=== PATIENT | male | born 1965 | race Caucasian/White ===

== ENCOUNTER 2019-03-27 11:54 | Emergency (ER) | payer OTHER ==
[2019-03-27 12:33] VITALS: BP 140/70
--- NOTE | 2019-03-27 13:31 | UC ---
Shoulder Pain HPI - HPI Summary HPI Summary: Patient is a 53yo male presenting with L shoulder pain x3 days. Denies injury or trauma. States it began while driving to [place] and back over the weekend but after he woke up yesterday morning, states pain was much worse. Notes sharp pain with any movement of L arm. States "feels like something is pinched or out of place." Denies numbness and tingling. Denies decreased ROM but states movement "takes longer because of pain." Denies radiating pain. Denies pain at rest. 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 States he has follow up derm appt today but wants a second opinion. - History of Current Complaint Chief Complaint: UCUpperExtremity Stated Complaint: LEFT SHOULDER PAIN Hx Obtained From: Patient Onset/Duration: Gradual Onset, Lasting Days Severity Currently: Severe Pain Intensity: 8 Pain Scale Used: 0-10 Numeric Related History: Dominant Hand Right - Allergies/Home Medications Allergies/Adverse Reactions: Allergies Allergy/AdvReac Type Severity Reaction Status Date / Time No Known Allergies Allergy Verified 03/27/19 12:34 Home Medications: Home Medications NK [No Home Medications Reported] 03/27/19 [History Confirmed 03/27/19] PMH/Surg Hx/FS Hx/Imm Hx Previously Healthy: Yes - Surgical History Surgical History: None - Family History Known Family History: Positive: Unknown, Diabetes - Social History Occupation: Employed Full-time Lives: With Family Alcohol Use: Rare Substance Use Type: None Smoking Status (MU): Former Smoker Review of Systems All Other Systems Reviewed And Are Negative: Yes Constitutional: Positive: Negative Skin: Positive: Rash - pruritic rash on b/l arms, legs, feet Respiratory: Positive: Negative Cardiovascular: Positive: Negative Gastrointestinal: Positive: Negative Neurovascular: Positive: Negative Musculoskeletal: Positive: Arthralgia - L shoulder. Negative: Decreased ROM, Edema Neurological: Negative: Weakness, Paresthesia, Numbness Physical Exam Triage Information Reviewed: Yes Appearance: Well-Appearing, No Pain Distress, Well-Nourished Vital Signs: Initial Vital Signs Temp 98.0 F 03/27/19 12:29 Pulse 62 03/27/19 12:29 Resp 18 03/27/19 12:29 BP 140/70 03/27/19 12:29 Pulse Ox 98 03/27/19 12:29 Vital Signs Reviewed: Yes Eyes: Positive: Conjunctiva Clear ENT: Positive: Hearing grossly normal Neck exam: Normal Neck: Positive: Supple Respiratory Exam: Normal Respiratory: Positive: Lungs clear, Normal breath sounds, No respiratory distress. Negative: Crackles, Rhonchi, Stridor, Wheezing Cardiovascular Exam: Normal Cardiovascular: Positive: RRR, Pulses Normal - strong radial pulses b/l, Brisk Capillary Refill Musculoskeletal Exam: Normal Musculoskeletal: Positive: Strength Intact, No Edema, ROM Limited @ - L arm abduction due to pain, Other: - tenderness to palpation of posterior humeral head Neurological Exam: Other - sensation grossly intact Neurological: Positive: Alert Psychological: Positive: Age Appropriate Behavior Skin: Positive: Rashes - pruritic diffuse scaling rash noted over b/l forearms, lower legs, and feet. no drainage or sign of infection. Diagnostics - Radiology L shoulder Radiology Interpretation Completed By: Radiologist Summary of Radiographic Findings: IMPRESSION: Degenerative changes of the glenohumeral joint. AC joint arthritis with no fracture. Shoulder Course/Dx - Course Course Of Treatment: Discussed degenerative changes of AC joint and glenohumeral joint found on xray. Instructed to continue with symptomatic treatment and follow up with ortho if pain persists. Instructed to follow up with derm appt today for further evaluation of rash. Patient voiced understanding and agreed with treatment plan. - Differential Dx/Diagnosis Provider Diagnosis: Degenerative joint disease of shoulder, left, Rash Discharge ED - Sign-Out/Discharge Documenting (check all that apply): Patient Departure All imaging exams completed and their final reports reviewed: Yes - Discharge Plan Condition: Stable Disposition: HOME Patient Education Materials: Shoulder Pain (ED), Arthritis (ED) Referrals: [facility] [Outside] - If Needed Angela Titus MD [Primary Care Provider] - If Needed Additional Instructions: As discussed, the xrays of the shoulder did not show any fractures. Rest, ice and/or heat to help relieve pain. You may also continue to use your naproxen as directed for pain relief. If pain does not resolve, follow up with orthopedics and sports medicine as listed below. I encourage you to attend your dermatology appointment today for further evaluation of your rash. - Billing Disposition and Condition Condition: STABLE Disposition: Home
== END 2019-03-27 15:00 | disposition home or self-care (01) ==
LOC: UCEAST 11:54
DX: M19.012 Primary osteoarthritis, left shoulder (principal); R21 Rash and other nonspecific skin eruption; Z87.891 Personal history of nicotine dependence
CPT/HCPCS: 99211; G0463

== ENCOUNTER 2019-03-30 10:51 | Emergency (ER) | payer SELFPAY ==
--- NOTE | 2019-03-30 11:15 | ED ---
Complex/Multi-Sys Presentation - HPI Summary HPI Summary: This pt is a 53 y/o male presenting to [facility] c/o hemoptysis today. Pt reports he coughed up sage blood this morning for the first time and it was a significant amount he was very concerned. He notes he had spit up blood a couple of times in the past 1 month but was not a significant amount. Denies chest pain, SOB, abd pain. Pt notes 4 days ago he had chills but did not take his temperature. He states his chills lasted for 45 minutes and then resolved. Denies recent weight loss. Pt reports he has had a rash for "quite a while" for about the past couple of months. 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 He has seen a senior enlisted advisor (At [facility]) and had a biopsy done 3 days ago. Pt describes rash as pruritic. Denies throat tightening, swelling in lips or tongue. Denies any new perfumes, soaps, or clothes. Denies hx of HTN, high cholesterol, eczema as a child. Pt is a former smoker, he quit 3.5 years ago. - History Of Current Complaint Chief Complaint: EDGeneral Hx Obtained From: Patient Onset/Duration: Sudden Onset, Still Present Severity Currently: Moderate Aggravating Factor(s): nothing Alleviating Factor(s): nothing Associated Signs And Symptoms: Positive: Cough, Hemoptysis, Other - NEGATIVE: throat tightening, swelling in lips or tongue.. Negative: SOB, Chest Pain, Abdominal Pain, Fever - Allergies/Home Medications Allergies/Adverse Reactions: Allergies Allergy/AdvReac Type Severity Reaction Status Date / Time No Known Allergies Allergy Verified 03/30/19 10:59 Home Medications: Home Medications Acetaminophen TAB* [Tylenol TAB*] 325 mg PO Q4H PRN 03/30/19 [History Confirmed 03/30/19] Naproxen TAB* [Naprosyn 250 mg TAB*] 250 mg PO Q8H PRN 03/30/19 [History Confirmed 03/30/19] Triamcinolone 0.1% CREAM(NF) [Kenalog 0.1% Cream (NF)] 1 applic TOPICAL BID [History Confirmed 03/30/19] PMH/Surg Hx/FS Hx/Imm Hx Endocrine/Hematology History: Denies: Hx Diabetes Cardiovascular History: Denies: Hx Hypercholesterolemia, Hx Hypertension History: Reports: Other Problems/Disorders - Abscess on scrotum Infectious Disease History: No Infectious Disease History: Denies: Hx of Known/Suspected MRSA, Traveled Outside the [place] in Last 30 Days - Family History Known Family History: Positive: Diabetes - Social History Alcohol Use: Rare Substance Use Type: Reports: None Hx Tobacco Use: Yes Smoking Status (MU): Former Smoker Review of Systems Positive: Chills. Negative: Fever, Other - NEGATIVE: recent weight loss Negative: Other - NEGATIVE: throat tightening, swelling in lips or tongue Negative: Chest Pain Respiratory: Other - POSITIVE: hemoptysis Positive: Cough. Negative: Shortness Of Breath Negative: Abdominal Pain Positive: Rash All Other Systems Reviewed And Are Negative: Yes Physical Exam - Summary Physical Exam Summary: VITAL SIGNS: Reviewed. GENERAL: Patient is a well-developed and nourished male who is lying comfortable in the stretcher. Patient is not in any acute respiratory distress. HEAD AND FACE: No signs of trauma. No ecchymosis, hematomas or skull depressions. No sinus tenderness. EYES: PERRLA, EOMI x 2, No injected conjunctiva, no nystagmus. EARS: Hearing grossly intact. Ear canals and tympanic membranes are within normal limits. MOUTH: Oropharynx within normal limits. NECK: Supple, trachea is midline, no adenopathy, no JVD, no carotid bruit, no c- spine tenderness, neck with full ROM. CHEST: Symmetric, no tenderness at palpation LUNGS: Clear to auscultation bilaterally. No wheezing or crackles. CVS: Regular rate and rhythm, S1 and S2 present, no murmurs or gallops appreciated. ABDOMEN: Soft, non-tender. No signs of distention. No rebound no guarding, and no masses palpated. Bowel sounds are normal. EXTREMITIES: FROM in all major joints, no edema, no cyanosis or clubbing. NEURO: Alert and oriented x 3. No acute neurological deficits. Speech is normal and follows commands. SKIN: Dry and warm. Diffuse pruritic rash that is blaching, with irregular borders and looks chronic. Triage Information Reviewed: Yes Vital Signs On Initial Exam: Initial Vitals Temp Pulse Resp BP Pulse Ox 97.7 F 39 16 163/101 99 03/30/19 10:54 03/30/19 10:54 03/30/19 10:54 03/30/19 10:54 03/30/19 10:54 Vital Signs Reviewed: Yes Procedures - Sedation Patient Received Moderate/Deep Sedation with Procedure: No Diagnostics - Vital Signs Vital Signs Temp Pulse Resp BP Pulse Ox 03/30/19 10:54 97.7 F 39 16 163/101 99 - Laboratory Result Diagrams: 03/30/19 11:23 03/30/19 11:23 Lab Statement: Any lab studies that have been ordered have been reviewed, and results considered in the medical decision making process. - Radiology Chest XR Radiology Interpretation Completed By: Radiologist Summary of Radiographic Findings: IMPRESSION: Right perihilar infiltrate, recommend follow-up chest x-rays to resolution. Dr. Fischer has reviewed this report. - EKG 11:03 Cardiac Rate: Tachycardia - at 115 bpm EKG Rhythm: Sinus Tachycardia Ectopy: PVCs Summary of EKG Findings: EKG at 11:03 shows sinus tachycardia at a rate of 115 bpm. PVCs and a small episode of nonsustained Vtach. Complex Multi-Symp Course/Dx Assessment/Plan: This patient is a 53-year-old male with no significant past medical history presents to the emergency department with a chief complaint of hemoptysis. He denies any weight loss, denies any fevers or chills, denies any chest pain or shortness of breath. Blood work without any significant abnormality except for sodium 134, chloride 100, CRP of 60 and BNP 144. Urinalysis negative for UTI. Chest x-ray impression: Right perihilar infiltrate , recommend follow-up chest x-rays to resolution. In the ED course the patient was given Levaquin and IV fluids. CURB-65 is 0. Therefore the patient can be treated as an outpatient. The patient has an allergic reaction and is being treated with dermatology. He feels comfortable about his allergy reaction in the ED. I discussed all the findings and test results with the patient. Patient was instructed to return to the emergency room immediately if any of the symptoms return or worsen . Plan of care was discussed with the patient and understands and agrees. All questions were answered at patient satisfaction. There were no further complaints or concerns. Lung exam before discharge: CTA B /L. Good air exchange. No wheezing or crackles heard. CVS: S1 and S2 present. No murmurs appreciated. Patient is alert and oriented x 3. Patient is hemodynamically stable. Patient will be discharged home with follow up from his PCP in the next 2-3 days. - Diagnoses Differential Diagnoses/HQI/PQRI: Other - Pneumonia, bronchitis, malignancy, bronchiectasis, pulmonary edema Provider Diagnoses: Pneumonia, Allergic reaction Discharge ED - Sign-Out/Discharge Documenting (check all that apply): Patient Departure - Discharge home - Discharge Plan Condition: Stable Disposition: HOME Prescriptions: Levofloxacin TAB* [Levaquin TAB*] 750 mg PO DAILY #9 tab Patient Education Materials: Pneumonia (ED) Referrals: Angela Titus MD [Primary Care Provider] - Additional Instructions: FOLLOW UP WITH YOUR PRIMARY CARE PROVIDER IN 2-3 DAYS. RETURN TO THE EMERGENCY DEPARTMENT FOR ANY WORSENING OR NEW SYMPTOMS. - Billing Disposition and Condition Condition: STABLE Disposition: Home - Attestation Statements Document Initiated by Foreste: Yes Documenting Scribe: Jania Corea Provider For Whom Scribe is Documenting (Include Credential): Sam Fischer MD Scribe Attestation: Jania Mclain scribed for Sam Fischer MD on 03/30/19 at 2117. Scribe Documentation Reviewed: Yes Provider Attestation: The documentation as recorded by the Jania mckeon accurately reflects the service I personally performed and the decisions made by Sam heller MD Status of Scribe Document: Viewed
[2019-03-30] MEDS: NS 0.9% 1000 ML** 1,000 ML IV ONE (11:26)
[2019-03-30 11:34] LABS: ABS Eosinophils 0.4 10^3/ul (0-0.6); ABS Lymphocytes 1.7 10^3/ul (1.0-4.8); ABS Monocytes 0.9 10^3/ul (0-0.8); ABS Neutrophils 5.5 10^3/ul (1.5-7.7); Eosinophil % 4.3 %; Hematocrit 44 % (42-52); Hemoglobin 15.4 g/dL (14.0-18.0); Lymphocyte % 19.7 %; Mean Corpuscular HGB Conc 35 g/dL (31-36); Mean Corpuscular Hemoglobin 33 pg (27-31); Mean Corpuscular Volume 96 fL (80-94); Mean Platelet Volume 7.8 fL (7.4-10.4); Platelet Count 253 10^3/uL (150-450); Red Blood Count 4.63 10^6 /uL (4.18-5.48); Red Cell Distribution Width 13 % (10-15); White Blood Count 8.5 10^3/uL (3.5-10.8)
[2019-03-30 11:44] LABS: Activated Partial Thrombo Time 32.5 seconds (26.0-38.0); INR 0.95 (0.82-1.09)
[2019-03-30] MEDS: Magnesium Oxide TAB* 400 MG PO ONE (11:49)
[2019-03-30 11:57] LABS: Urine Appearance Clear; Urine Bilirubin Negative (Negative); Urine Blood Negative (Negative); Urine Color Yellow; Urine Glucose Negative (Negative); Urine Ketones Negative (Negative); Urine Nitrite Negative (Negative); Urine Protein Negative (Negative); Urine Specific Gravity 1.011 (1.010-1.030); Urine Urobilinogen Negative (Negative)
[2019-03-30 12:00] LABS: Albumin 3.8 g/dL (3.2-5.2); Albumin/Globulin Ratio 1.1 (1-3); BUN/Creatinine Ratio 14.6 (8-20); C Reactive Protein 60.85 mg/L (<8.01); CKMB ng/mL 2.4 ng/mL (0.6-6.3); Calcium 9.5 mg/dL (8.6-10.3); EGFR African American 107.8 (>60); EGFR Non-African American 89.1 (>60); Globulin 3.5 g/dL (2-4); Potassium 4.6 mmol/L (3.5-5.0); Total Bilirubin 0.6 mg/dL (0.2-1.0); Total Protein 7.3 g/dL (6.4-8.9)
[2019-03-30 12:01] LABS: Troponin I 0.01 ng/mL (<0.03)
[2019-03-30] MEDS: Levofloxacin 750 MG IVPREMIX(* 750 MG/150 ML BAG IVPB ONE (13:44)
[2019-03-30 15:32] VITALS: BP 137/71
== END 2019-03-30 15:28 | disposition home or self-care (01) ==
LOC: ED 10:51
DX: J18.9 Pneumonia, unspecified organism (principal); T78.40XA Allergy, unspecified, initial encounter; X58.XXXA Exposure to other specified factors, initial encounter; Y92.9 Unspecified place or not applicable; Z87.891 Personal history of nicotine dependence
CPT/HCPCS: 36415; 71046; 80053; 81003; 82550; 82553; 83605; 83880; 84484; 85025; 85610; 85730; 86140; 93005; 96361; 96365; 96366; 99283

== ENCOUNTER 2024-05-19 14:02 | Observation (INO) ==
[2024-05-19 14:44] LABS: INR 1.21 (0.85-1.14)
[2024-05-19 14:51] LABS: ABS Basophils 0.1 10^3/uL (0.0-0.1); ABS Eosinophils 0.1 10^3/uL (0.0-0.5); ABS Lymphocytes 1.9 10^3/uL (1.0-4.8); ABS Monocytes 1.5 10^3/uL (0.0-1.1); ABS Neutrophils 8.3 10^3/uL (1.5-7.6); ABS Nucleated RBC 0.02 10^3/ul; Eosinophil % 0.8 %; Hematocrit 46.7 % (38-53); Hemoglobin 15.9 g/dL (13.2-16.3); Lymphocyte % 16.1 %; Mean Corpuscular Hemoglobin 33.2 pg (27-33); Mean Corpuscular Volume 97.6 fL (80-97); Mean Platelet Volume 8.1 fL (7.5-11.2); Nucleated Red Blood Cells % 0.2 %/100WBC (0.0-0.8); Platelet Count 219 10^3/uL (150-450); Red Blood Count 4.79 10^6/uL (4.06-5.63)
[2024-05-19 15:19] LABS: Albumin 4.1 g/dL (3.5-5.7); Albumin/Globulin Ratio 1.5 (1-3); Calcium 9.4 mg/dL (8.6-10.3); Creatinine, Serum 0.97 mg/dL (0.67-1.17); Globulin 2.8 g/dL (2-4); Total Bilirubin 1.7 mg/dL (0.2-1.0); Total Protein 6.9 g/dL (6.4-8.9); eGFR CKD-EPI 89.9 (>60)
[2024-05-19] MEDS: Iohexol 350 (CONTRAST) 500 ML MDV IV ONE (15:40)
[2024-05-19 16:01] LABS: High Sensitivity Troponin 1 Hr 5 pg/mL (<20)
[2024-05-19] MEDS ORDERED: Heparin DRIP 25,000 UNITS BAG 25,000 UNITS/250 ML BAG IV ONE (16:24)
[2024-05-19] MEDS: Heparin DRIP 25,000 UNITS BAG 25,000 UNITS/250 ML BAG IV SCH (16:34)
[2024-05-19] MEDS ORDERED: Heparin 5000 UNITS/ML 1 mL VIAL IV SCH (17:00)
[2024-05-19 20:42] LABS: Creatinine, Serum 1.07 mg/dL (0.67-1.17); eGFR CKD-EPI 79.9 (>60)
[2024-05-19 23:20] LABS: Urine Appearance Clear; Urine Bacteria Absent /HPF (Absent); Urine Bilirubin Negative (Negative); Urine Blood Trace (Negative); Urine Color Yellow; Urine Glucose Trace (Negative); Urine Ketones Negative (Negative); Urine Nitrite Negative (Negative); Urine Protein Trace (Negative); Urine Red Blood Cell Trace(0-2/hpf) /HPF (0-Trace); Urine Specific Gravity >1.050 (1.002-1.030); Urine Urobilinogen 3+ (Negative); Urine White Blood Cell Trace(0-5/hpf) /HPF (0-Trace)
[2024-05-20 06:09] LABS: Hematocrit 44.4 % (38-53); Hemoglobin 15.3 g/dL (13.2-16.3); Mean Corpuscular Hemoglobin 33.5 pg (27-33); Mean Corpuscular Hgb Conc 34.4 g/dL (31-36); Mean Corpuscular Volume 97.4 fL (80-97); Mean Platelet Volume 8.1 fL (7.5-11.2); Platelet Count 205 10^3/uL (150-450); Red Blood Count 4.56 10^6/uL (4.06-5.63); Red Cell Distribution Width 12.9 % (12-17); White Blood Count 14.7 10^3/uL (3.6-10.2)
[2024-05-20 07:52] LABS: C Reactive Protein 158.97 mg/L (<8.01)
[2024-05-20 08:27] LABS: ABS Basophils 0.1 10^3/uL (0.0-0.1); ABS Eosinophils 0.1 10^3/uL (0.0-0.5); ABS Lymphocytes 1.8 10^3/uL (1.0-4.8); ABS Monocytes 1.9 10^3/uL (0.0-1.1); ABS Neutrophils 10.9 10^3/uL (1.5-7.6); ABS Nucleated RBC 0.01 10^3/ul; Eosinophil % 0.5 %; Lymphocyte % 11.9 %
[2024-05-20] MEDS: cefTRIAXone 1 gm/50 mL D5W 1 GM/50 ML BAG IV SCH (13:05)
[2024-05-20] MEDS: Azithromycin 500 mg/250 ml NS 500 MG/250 ML BAG IVPB SCH (13:05)
[2024-05-20] MEDS: Morphine 2 MG/ML SYRINGE IV PRN (17:34)
[2024-05-21 08:31] LABS: ABS Basophils 0.1 10^3/uL (0.0-0.1); ABS Eosinophils 0.1 10^3/uL (0.0-0.5); ABS Monocytes 1.5 10^3/uL (0.0-1.1); ABS Neutrophils 8.3 10^3/uL (1.5-7.6); ABS Nucleated RBC 0.02 10^3/ul; Eosinophil % 0.5 %; Hematocrit 42.5 % (38-53); Hemoglobin 14.8 g/dL (13.2-16.3); Lymphocyte % 16.8 %; Mean Corpuscular Hemoglobin 34.2 pg (27-33); Mean Corpuscular Hgb Conc 34.8 g/dL (31-36); Mean Platelet Volume 8.1 fL (7.5-11.2); Nucleated Red Blood Cells % 0.2 %/100WBC (0.0-0.8); Platelet Count 221 10^3/uL (150-450); Red Blood Count 4.33 10^6/uL (4.06-5.63); Red Cell Distribution Width 12.7 % (12-17)
[2024-05-21] MEDS: Sulfur Hexaflouride MICROSPHR 25 MG VIAL IV PRN (08:42)
[2024-05-21 09:16] LABS: Calcium 9.2 mg/dL (8.6-10.3); Creatinine, Serum 0.92 mg/dL (0.67-1.17); Magnesium 1.9 mg/dL (1.9-2.7); Potassium 4.8 mmol/L (3.5-5.0); eGFR CKD-EPI 95.8 (>60)
[2024-05-21] MEDS ORDERED: Sulfur Hexaflouride MICROSPHR 25 MG VIAL ONE (10:10)
[2024-05-22 06:13] LABS: Hematocrit 40.8 % (38-53); Hemoglobin 13.9 g/dL (13.2-16.3); Mean Corpuscular Hemoglobin 33.4 pg (27-33); Mean Corpuscular Hgb Conc 34.1 g/dL (31-36); Mean Corpuscular Volume 97.8 fL (80-97); Mean Platelet Volume 8.1 fL (7.5-11.2); Platelet Count 230 10^3/uL (150-450); Red Blood Count 4.18 10^6/uL (4.06-5.63); White Blood Count 11.5 10^3/uL (3.6-10.2)
[2024-05-22 06:34] LABS: Calcium 8.5 mg/dL (8.6-10.3); Creatinine, Serum 0.81 mg/dL (0.67-1.17); Magnesium 1.9 mg/dL (1.9-2.7); Potassium 3.8 mmol/L (3.5-5.0); eGFR CKD-EPI 101.6 (>60)
[2024-05-22] MEDS ORDERED: Naloxone 0.4 mg VIAL 0.4 mg/ml 1 ml VIAL ONE (08:17)
[2024-05-22] MEDS ORDERED: fentaNYL 100 mcg/2 ml 50 MCG/ML VIAL ONE (08:17)
[2024-05-22] MEDS ORDERED: Flumazenil 0.5 mg/5 ml 0.1 MG/ML 5 ml VIAL ONE (08:17)
[2024-05-22] MEDS ORDERED: Midazolam 5 mg/5 ml VIAL 1 mg/ml 5 ml VIAL (5 mg) ONE (08:18)
[2024-05-22 10:24] VITALS: BP 128/79
[2024-05-22] MEDS ORDERED: cefTRIAXone ADVAN VIAL 1 GM in NS 0.9% 50 ML 50 ML IV SCH (11:45)
[2024-05-22] MEDS: cefTRIAXone 1 gm/50 mL D5W 1 GM/50 ML BAG IV SCH (12:50)
== END 2024-05-22 13:30 | disposition home or self-care (01) ==
LOC: EDHOLD 14:02 → ED 14:02 → MEDTELE 05-20 08:28
PROVIDERS: ADMIT Student in an Organized Health Care Education/Training Program; ATTEND Student in an Organized Health Care Education/Training Program